=== PATIENT | female | born 1970 | race Caucasian/White ===

== ENCOUNTER 2017-04-11 08:15 | Day surgery (SDC) | payer BC ==
[2017-04-07 15:45] VITALS: BMI 33.5
[2017-04-11] MEDS ORDERED: ONDANSETRON 4 MG/2 ML VIAL IVPUSH ONE (11:52)
--- NOTE | 2017-04-11 12:28 | HP ---
Past Medical History - Primary Care Physician PCP:: Mahesh Enriquez - Admission Chief Complaint: 46yp P0020 with menometrorrhagia admitted for hysteroscopy, D& C. History of Present Illness: Bleeding every day for several months. Also was found an adnexal mass that is being evaluated. 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: Alzheimer's, CVA, Dementia, Migraine, Multiple Sclerosis, Peripheral Neuropathy, Parkinson's, Seizure, Syncope, TIA, Vertigo, Other Cardiovascular: Yes: Mitral Insufficiency, Other (Left LE venous insuficiency) Pulmonary: Yes: Asthma Gastrointestinal: No: Ascites, Cancer, Constipation, Crohn's Disease, Diverticulitis, Diverticulosis, Esophageal Varices, Gastritis, GERD, GI Bleed, Hemorrhoids, Hiatal Hernia, Inflamatory Bowel Disease, Irritable Bowel Disease, Pancreatitis, Peptic Ulcer Disease, Ulcerative Colitis, Other Hepatobiliary: No: Cirrhosis, Cholelithiasis, Cholecystitis, Choledocholithiasis , Hepatitis A, Hepatitis B, Hepatitis C, Other Renal/: No: Renal Failure, Renal Inusuff, BPH, Cancer, Hematuria, Hemodialysis , Neurogenic Bladder, Renal Calculi, UTI, Other Reproductive: Yes: Ectopic , Fibroids, PID ...: 2 ...Para: 0 Heme/Onc: No: Anemia, B12 Deficiency, Bleeding Disorder, Cancer, Current Chemotherapy, Current Radiation Therapy, Hemochromatosis, Hypercoaguable State, Myeloproliferative Synd, Sickle Cell Disease, Sickle Cell Trait, Thrombocytopenia, Other Infectious Disease: No: AIDS, C-Diff, Herpes Zoster, HIV, MRSA, STD's, Tuberculosis, VREF, Other Psych: No: Addictions, Anxiety, Bipolar, Depression, Panic, Psychosis, Schizophrenia, Other Musculoskeletal: No: Bursitis, Chronic low back pain, Hemiparesis, Hemiplegia, Osteoarthritis, Paraplegia, Other Rheumatology: No: Fibromyalgia, Gout, Lupus, Rheumatoid Arthritis, Sarcoidosis, Vasculitis, Other ENT: No: Allergic Rhinitis, Sinusitis, Other Endocrine: No: Amilcar's Disease, [place]'s Disease, Diabetes Insipidus, Diabetes Mellitus, Hyperparathyroidism, Hyperthyroidism, Hypothyroidism, Osteopenia, SIADH, Other Dermatology: No: Basal Cell, Cellulitis, Eczema, Melanoma, Psoriasis, Squamous Cell, Other - Past Surgical History Hx Myomectomy: Yes (Laparotomy) Hx Transabdominal Cerclage: No Additional Surgical History: Laparotomy for ectopic , Laparoscopy x 5, known multiple dense adhesion - Smoking History Smoking history: Current every day smoker Have you smoked in the past 12 months: Yes Aproximately how many cigarettes per day: 2 - Alcohol/Substance Use Hx Alcohol Use: No History of Substance Use: reports: None - Social History Usual Living Arrangement: Yes: With Spouse ADL: Independent History of Recent Travel: No Home Medications - Allergies Allergies/Adverse Reactions: Allergies Allergy/AdvReac Type Severity Reaction Status Date / Time prochlorperazine edisylate Allergy Intermediate "JAW KEEPS Verified 04/07/17 15: 57 [From Compazine] MOVING SIDE TO SIDE" morphine Allergy "VOMITING" Verified 04/07/17 15:57 - Home Medications Home Medications: Ambulatory Orders Triamterene/Hydrochlorothiazid [Dyazide 37.5-25 Capsule] 1 each PO DAILY Clonazepam [Klonopin] 2 mg PO BID 04/07/17 Ferrous Sulfate 325 mg PO DAILY 04/07/17 Fluoxetine HCl [Prozac] 80 mg PO DAILY 04/07/17 Family Disease History - Family Disease History Family History: Denies Review of Systems - Review of Systems Constitutional: reports: No Symptoms Eyes: reports: No Symptoms HENT: reports: No Symptoms Neck: reports: No Symptoms Cardiovascular: reports: No Symptoms Respiratory: reports: No Symptoms Gastrointestinal: reports: No Symptoms Genitourinary: reports: Vaginal Bleeding Breasts: reports: No Symptoms Reported Musculoskeletal: reports: No Symptoms Integumentary: reports: No Symptoms Neurological: reports: No Symptoms Endocrine: reports: No Symptoms Hematology/Lymphatic: reports: No Symptoms Psychiatric: reports: No Symptoms Pain Intensity: 0 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: Vital Signs Temperature 98.5 F 04/11/17 08:39 Pulse Rate 63 04/11/17 08:39 Respiratory Rate 18 04/11/17 08:39 Blood Pressure 100/65 04/11/17 08:39 O2 Sat by Pulse Oximetry (%) 98 04/11/17 08:39 Constitutional: Yes: No Distress, Anxious, Obese Eyes: Yes: WNL, Conjunctiva Clear, EOM Intact HENT: Yes: WNL Neck: Yes: WNL, Supple, Trachea Midline Cardiovascular: Yes: WNL, Regular Rate and Rhythm Respiratory: Yes: WNL, Regular, CTA Bilaterally Gastrointestinal: Yes: WNL, Normal Bowel Sounds, Soft, Abdomen, Obese Renal/: Yes: WNL Pelvis: Yes: WNL External Genitalia: Yes: Normal Internal Exam Deferred: No Vaginal Exam: Yes: Normal Cervix: Yes: Normal Uterus: Yes: Enlarged Adnexa: Normal: Left, Right (known adnexal mass not felt) Musculoskeletal: Yes: WNL Extremities: Yes: WNL Edema: No Integumentary: Yes: WNL Neurological: Yes: Alert, Oriented ...Motor Strength: WNL Psychiatric: Yes: WNL, Alert, Oriented Imaging - Results Ultrasound: Report Reviewed Assessment/Plan 46 yo P0020 with menometrorrhagia admitted for hysteroscopy, D&C. 1. We had discussed the risks, benefits, alternatives of surgery at length including but not limited to infection, bleeding, scarring, perforation, amenorrhea, infertility, hysterectomy, etc. The pt verbalized understanding and requested to proceed with surgery. I emphasized that all surgeries have risks and no guarantees can be provided 2. We had discussed the management of the adnexal mass. The pt understands that a close f/u is required and the findings are cancer until proven otherwise. We discussed that another surgery may be needed later and the increased risks due to obesity, asthma, adhesions, etc. explained.
[2017-04-11] MEDS ORDERED: LIDOCAINE HCL/PF 2% SDV 5ML VIAL ONE (12:45)
[2017-04-11] MEDS ORDERED: MIDAZOLAM HCL 2 MG/2 ML SINGLE DOSE VIAL ONE ×2 (12:45)
[2017-04-11] MEDS ORDERED: PROPOFOL 20 ML ONE (12:45)
[2017-04-11] MEDS ORDERED: ceFAZolin SODIUM 1 GM VIAL IVPB ONE (13:07)
[2017-04-11] MEDS ORDERED: ONDANSETRON 4 MG/2 ML VIAL IVPUSH PRN (13:22)
[2017-04-11] MEDS ORDERED: PROMETHAZINE HCL 25 MG/1 ML VIAL IVPUSH PRN (13:22)
[2017-04-11] MEDS ORDERED: oxyCODONE HCL 5 MG TABLET PO PRN (13:22)
[2017-04-11 13:42] VITALS: TEMP 97.8
[2017-04-11 14:13] VITALS: PULSE 64
[2017-04-11 15:45] VITALS: BP 100/60
--- NOTE | 2017-04-11 20:32 | OP ---
Operative Note - Note: Operative Date: 04/11/17 Pre-Operative Diagnosis: Menometrorrhagia, fibroid uterus Operation: Hysteroscopy, D&C Findings: Normal appearing endometrial cavity with an area of polypoid endometrial lining Post-Operative Diagnosis: Same as Pre-op Surgeon: Mahesh Enriquez Anesthesiologist/INPATIENT AUDITOR: Erasmo Howe Anesthesia: General Specimens Removed: Endometrial curettings, endometrial polyp Estimated Blood Loss (mls): 5 Blood Volume Replaced (mls): 0 Fluid Volume Replaced (mls): 1,000 Operative Report Dictated: Yes
--- NOTE | 2017-04-12 08:49 | OP ---
DATE OF OPERATION: 04/11/2017 PREOPERATIVE DIAGNOSES: Menometrorrhagia, fibroid uterus. POSTOPERATIVE DIAGNOSES: Menometrorrhagia, fibroid uterus, endometrial polyp. SURGEON: Lincoln Dorsey MD ANESTHESIOLOGIST: Erasmo Howe MD ANESTHESIA: General. COMPLICATIONS: None. ESTIMATED BLOOD LOSS: 5 mL. IV FLUIDS: Crystalloid, 1000 mL. PATHOLOGY: Endometrial curettings, endometrial polyp. PROCEDURE: Hysteroscopy, dilatation and curettage, polypectomy. FINDINGS: Examination under anesthesia was somewhat limited due to patient's obesity and multiple previous abdominal surgeries. The uterus appeared to be slightly enlarged. No pelvic or adnexal masses were palpable. Hysteroscopy was technically difficult due to patient's obesity as well as position of the cervix and uterus that made angling of the camera and visualization difficult. However, during the hysteroscopy a normal-appearing uterine cavity was noted. A small uterine polyp and polypoid endometrial lining were noted. PROCEDURE: The patient was met preoperatively. Risks, benefits, and alternatives of surgery were discussed in details. All questions were answered. The patient was then brought to the OR with IV running. She was placed on the surgical table in the supine position. General anesthesia was achieved without difficulty. The patient was then placed in a dorsal lithotomy position using adjustable Erich stirrups. She was prepped and draped in the usual sterile fashion. A pelvic examination under anesthesia was performed. It was very difficult to palpate the uterus and adnexa due to patient's obesity and multiple prior surgeries. The vaginal length was making it difficult to reach the cervix. A sterile speculum was introduced inside the vagina with good visualization of the cervix. The anterior cervical lip was grasped with a single-tooth tenaculum. The endocervical canal was gently dilated to accommodate size 17 Bobby dilator. A diagnostic hysteroscope was introduced through the cervix into the endometrial cavity. The hysteroscopy was complicated by patient's obesity and distal position of the cervix making angling and adequate visualization very difficult. However, a normal-appearing uterine cavity was noted with a small uterine polyp and slightly polypoid endometrial lining. The hysteroscope was then removed. The cervical os was dilated to accommodate a size 27 Bobby dilator. A polyp forceps was used to remove the endometrial polyp. A sharp curettage was then performed and the tissue was submitted to Pathology for evaluation. A hysteroscope was once again introduced into the uterine cavity. No further polyps were noted. Good hemostasis was noted. All of the instruments were then removed from the patient. Sponge, lap, and instrument counts were correct. The patient was transferred to the recovery room in stable condition and awake. LINCOLN DORSEY M.D. [id number]
--- NOTE | 2017-04-12 12:47 | PATH ---
Surgical Pathology Report Patient Name: [facility]. Rec. #: [id number] /Age/Gender: 1970 (Age: 46) / F Account: [id number] Location: [facility] Taken: 04/11/2017 Received: 04/11/2017 Reported: 04/12/2017 Physicians: Mahesh Enriquez M.D. 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 NO ENDOMETRIAL HYPERPLASIA OR CARCINOMA IDENTIFIED. Comment: Recommend correlation with clinical findings and follow up as clinically indicated. Electronically Signed Brennan Mendez M.D. Gross Description Received in formalin labeled "endometrial curettings," is a 2.5 x 2.3 x 0.3 cm aggregate of salas-red soft tissue fragments admixed with blood clot. The formalin is filtered and the specimen is entirely submitted in one cassette. 04/11/201704/11/2017
== END 2017-04-11 15:55 | disposition home or self-care (01) ==
LOC: JASU-SURG 08:15
PROVIDERS: ATTEND Obstetrics & Gynecology
PROC: 0UB98ZX Excision of Uterus, Via Natural or Artificial Opening Endoscopic, Diagnostic (ICD-10-PCS; principal; 2017-04-11 10:30)
PROC: 0UDB8ZX Extraction of Endometrium, Via Natural or Artificial Opening Endoscopic, Diagnostic (ICD-10-PCS; 2017-04-11 10:30)
DX: N92.0 Excessive and frequent menstruation with regular cycle (principal); D25.9 Leiomyoma of uterus, unspecified; N84.0 Polyp of corpus uteri
CPT/HCPCS: 84703; 88305-TC; 94760

== ENCOUNTER 2017-05-15 22:48 | Emergency (ER) | payer BC ==
[2017-05-15 23:00] VITALS: BMI 35.2
--- NOTE | 2017-05-15 23:34 | PDOC ---
History of Present Illness - General History Source: Patient Exam Limitations: No Limitations - History of Present Illness Initial Comments: 05/16/17 00:08 The patient is a 46 year old female presenting with her , with a significant past medical history of MVP, PID, fibroids, anemia, asthma and diverticulosis, who presents to the emergency department with abdominal distention, pelvic pain for numerous months and vaginal bleeding. She describes her abdominal pain as a pressure, localized in the lower abdominal quadrants, ranging from mild to moderate, without radiation or modifying factors. She describes he vaginal bleeding as light spotting. The patient had a hysteroscopy on 04/15/[address] Enriquez for menorrhagia. Pathology was negative for any displacia. The patient is scheduled for a total hysterectomy due to increased bleeding and concern for adnexal mass. The patient denies chest pain, shortness of breath, headache and dizziness. Denies fever, chills, nausea, vomit, diarrhea and constipation. Denies dysuria, frequency, urgency and hematuria. Allergies: prochlorperazine edisylate, morphine Past surgical history: None reported Social history: No alcohol, tobacco or drug use reported <Jasper Snell - Last Filed: 05/16/17 00:07> <Halie Moy - Last Filed: 05/16/17 02:28> <Noy Smith - Last Filed: 05/16/17 05:06> - General Chief Complaint: Vaginal Bleeding Stated Complaint: STOMACH PAIN Time Seen by Provider: 05/15/17 23:30 Past History <Jasper Snell - Last Filed: 05/16/17 00:07> - Past Medical History Anemia: Yes Asthma: Yes Cancer: No Cardiac Disorders: Yes (MVP) CVA: No COPD: No CHF: No Dementia: No Diabetes: No (PRE DIABETIC) GI Disorders: Yes (DIVERTICULOSIS) Disorders: No HTN: No Hypercholesterolemia: No Liver Disease: No Seizures: No Thyroid Disease: No - Surgical History Abdominal Surgery: No Appendectomy: No Cardiac Surgery: No Cholecystectomy: No Lung Surgery: No Neurologic Surgery: No Orthopedic Surgery: No - Psycho/Social/Smoking Cessation Hx Suicidal Ideation: No Smoking History: Never smoked Have you smoked in the past 12 months: No Number of Cigarettes Smoked Daily: 2 Information on smoking cessation initiated: No 'Breaking Loose' booklet given: 04/11/17 Hx Alcohol Use: No Drug/Substance Use Hx: No Hx Substance Use Treatment: No <Halie Moy - Last Filed: 05/16/17 02:28> <Noy Smith - Last Filed: 05/16/17 05:06> - Past Medical History Allergies/Adverse Reactions: Allergies Allergy/AdvReac Type Severity Reaction Status Date / Time prochlorperazine edisylate Allergy Intermediate "JAW KEEPS Verified 05/15/17 22: 56 [From Compazine] MOVING SIDE TO SIDE" morphine Allergy "VOMITING" Verified 05/15/17 22:56 Home Medications: Ambulatory Orders Triamterene/Hydrochlorothiazid [Dyazide 37.5-25 Capsule] 1 each PO DAILY Clonazepam [Klonopin] 2 mg PO BID 04/07/17 Ferrous Sulfate 325 mg PO DAILY 04/07/17 Fluoxetine HCl [Prozac] 80 mg PO DAILY 04/07/17 Review of Systems - Review of Systems Able to Perform ROS?: Yes Comments:: 05/16/17 00:08 GENERAL/CONSTITUTIONAL: No fever or chills. No weakness. HEAD, EYES, EARS, NOSE AND THROAT: No change in vision. No ear pain or discharge. No sore throat.- CARDIOVASCULAR: No chest pain or shortness of breath RESPIRATORY: No cough, wheezing, or hemoptysis. GASTROINTESTINAL: (+) Abdominal pain. No nausea, vomiting, diarrhea or constipation. GENITOURINARY: (+) Vaginal bleeding. No dysuria, frequency, or change in urination. MUSCULOSKELETAL: No joint or muscle swelling or pain. No neck or back pain. SKIN: No rash NEUROLOGIC: No headache, vertigo, loss of consciousness, or change in strength/ sensation. ENDOCRINE: No increased thirst. No abnormal weight change HEMATOLOGIC/LYMPHATIC: No anemia, easy bleeding, or history of blood clots. ALLERGIC/IMMUNOLOGIC: No hives or skin allergy. <Jasper Snell - Last Filed: 05/16/17 00:07> *Physical Exam - Vital Signs Last Vital Signs Temp Pulse Resp BP Pulse Ox 98.0 F 71 16 143/83 100 05/15/17 22:58 05/15/17 22:58 05/15/17 22:58 05/15/17 22:58 05/15/17 22:58 - Physical Exam Comments: 05/16/17 00:08 GENERAL: Awake, alert, and fully oriented, in no acute distress HEAD: No signs of trauma, normocephalic, atraumatic EYES: PERRLA, EOMI, sclera anicteric, conjunctiva clear ENT: Auricles normal inspection, hearing grossly normal, nares patent, oropharynx clear without exudates. Moist mucosa NECK: Normal ROM, supple, no lymphadenopathy, JVD, or masses LUNGS: No distress, speaks full sentences, clear to auscultation bilaterally HEART: Regular rate and rhythm, normal S1 and S2, no murmurs, rubs or gallops, peripheral pulses normal and equal bilaterally. ABDOMEN: Soft, nontender, normoactive bowel sounds. No guarding, no rebound. No masses EXTREMITIES : Normal inspection, Normal range of motion, no edema. No clubbing or cyanosis. NEUROLOGICAL: Cranial nerves II through XII grossly intact. Normal speech, normal gait, no focal sensorimotor deficits SKIN: Warm, Dry, normal turgor, no rashes or lesions noted. <Jasper Snell - Last Filed: 05/16/17 00:07> - Vital Signs Last Vital Signs Temp Pulse Resp BP Pulse Ox 98.0 F 71 16 143/83 100 05/15/17 22:58 05/15/17 22:58 05/15/17 22:58 05/15/17 22:58 05/15/17 22:58 <Halie Moy - Last Filed: 05/16/17 02:28> - Vital Signs Last Vital Signs Temp Pulse Resp BP Pulse Ox 98.0 F 71 16 143/83 100 05/15/17 22:58 05/15/17 22:58 05/15/17 22:58 05/15/17 22:58 05/15/17 22:58 <Noy Smith - Last Filed: 05/16/17 05:06> ED Treatment Course - ADDITIONAL ORDERS Additional order review: Laboratory Results 05/15/17 23:33 Urine Color Yellow Urine Appearance Cloudy Urine pH 5.0 Urine Protein Negative Urine Glucose (UA) Negative Urine Ketones Negative Urine Blood 2+ H Urine Nitrite Negative Urine Bilirubin Negative Urine Urobilinogen Negative Ur Leukocyte Esterase Negative Urine HCG, Qual Negative <Jennifer Snellmarlen Reynosoe - Last Filed: 05/16/17 00:07> - LABORATORY CBC & Chemistry Diagram: 05/16/17 00:20 05/16/17 00:20 - ADDITIONAL ORDERS Additional order review: Laboratory Results 05/16/17 05/15/17 00:20 23:33 Sodium 138 Potassium 3.8 Chloride 100 Carbon Dioxide 28 Anion Gap 10 BUN 16 Creatinine 0.7 Creat Clearance w eGFR > 60 Random Glucose 98 Calcium 9.6 Total Bilirubin 0.5 D AST 16 ALT 34 D Alkaline Phosphatase 78 D Total Protein 6.9 Albumin 3.6 Lipase 257 Urine Color Yellow Urine Appearance Cloudy Urine pH 5.0 Urine Protein Negative Urine Glucose (UA) Negative Urine Ketones Negative Urine Blood 2+ H Urine Nitrite Negative Urine Bilirubin Negative Urine Urobilinogen Negative Ur Leukocyte Esterase Negative Urine RBC <1 Urine WBC 6 Ur Epithelial Cells Moderate Hyaline Casts 1 Urine Mucus Rare Urine HCG, Qual Negative 05/16/17 00:20 RBC 4.99 D MCV 76.5 L MCHC 32.7 RDW 16.2 H MPV 9.2 Neutrophils % 63.3 Lymphocytes % 24.2 D Monocytes % 7.8 Eosinophils % 3.4 D Basophils % 1.3 D - Medications Given in the ED: ED Medications Discontinued Medications Generic Name Dose Route Start Last Admin Trade Name Bobby PRN Reason Stop Dose Admin Clonazepam 2 mg 05/16/17 00:47 05/16/17 00:57 Klonopin - PO 05/16/17 00:48 2 mg ONCE ONE Administration Sodium Chloride 1,000 mls @ 1,000 mls/hr 05/16/17 00:09 05/16/17 00:27 Normal Saline - IV 05/16/17 01:08 1,000 mls/hr ASDIR STA Administration Sodium Chloride 1,000 mls @ 1,000 mls/hr 05/16/17 00:55 05/16/17 00:59 Normal Saline - IV 05/16/17 01:54 Not Given ASDIR STA <Noy Smith - Last Filed: 05/16/17 05:06> Progress Note - Progress Note Progress Note: Patient Name: BHUPINDER CHILDRESS THIS IS A PRELIMINARY REPORT FROM [facility] EXAM: CT abdomen with contrast and CT pelvis with contrast IMAGES: 1095 EXAM DATE AND TIME: 2017-05-16 02:24:37 REASON FOR EXAM: 46-year-old female abdominal distention, and pelvic pain. COMPARISON: None. FINDINGS: Lung bases are clear. Liver gallbladder pancreas spleen adrenal glands and left kidney appear unremarkable. Subcentimeter hypodense right kidney cortical cystic process is too small to characterize and most likely benign. No nephrolithiasis or hydronephrosis. Small hiatal hernia. Stomach small bowel and appendix appear unremarkable. No appendicitis. Diverticulosis without diverticulitis. Nonspecific heterogeneous masses in the uterus most likely due to uterine fibroids and other uterine masses cannot be excluded. Bilateral nonspecific complex ovarian cystic processes. No free air free fluid or abscess. Mild degenerative joint disease of the lower thoracic facets with mild dorsal spinal canal narrowing. Mild degenerative disc disease. Mild lower lumbar neural foraminal narrowing. IMPRESSION: Bilateral nonspecific complex ovarian cystic processes. If clinically indicated recommend correlation with transabdominal pelvic ultrasound and transvaginal pelvic ultrasound. Nonspecific heterogeneous masses in the uterus most likely due to uterine fibroids and other uterine masses cannot be excluded. If clinically indicated followup outpatient evaluation may be needed. Small hiatal hernia. Diverticulosis without diverticulitis. THIS DOCUMENT HAS BEEN ELECTRONICALLY SIGNED <Noy Smith - Last Filed: 05/16/17 05:06> Medical Decision Making - Medical Decision Making 05/15/17 23:53 46-year-old female who had a hysteroscopy for Augmentin menorrhagia in April by Dr. Enriquez presents for vaginal bleeding. Past medical history 2, para 0. She neck, ectopic , fibroids and pelvic inflammatory disease. Past surgical history also includes asthma and mitral insufficiency <Halie Moy - Last Filed: 05/16/17 02:28> - Medical Decision Making 05/16/17 04:56 I spoke to PMCristian Enriquez, who states that pt's findings are consistent with what was known from before. Pt has no fever, no sign of intraabdominal or ovarian abscess (from procedure done past week or two ago). Pt is afebrile and has no elevated WBC count. However we will get a sonogram to r/o torsion andto measure the size of the ovaries bilaterally Pt may be sent home with pain management as she is scheduled to see the [facility] oncologist on the of this month and she is scheduled for surgery on the of this month. Pt is stable at this time. She is ambulating about the ER and she appears well , though she states that she still has pain in her abdomen. I will sign patient out to the day ER team, they can get the ovarian sonogram, when the ultrasound dept opens and then disposition the patient. <Noy Smith - Last Filed: 05/16/17 05:06> *DC/Admit/Observation/Transfer - Attestations Scribe Attestion: 05/16/17 00:08 Documentation prepared by Jasper Snell, acting as medical assistant float for Halie Moy MD <Jasper Snell - Last Filed: 05/16/17 00:07> <Halie Moy - Last Filed: 05/16/17 02:28> <Nyo Smith - Last Filed: 05/16/17 05:06> Diagnosis at time of Disposition: Uterine mass, Ovarian cyst, complex, Abdominal pain
[2017-05-15 23:47] LABS: URINE APPEARANCE CLOUDY; URINE BILIRUBIN NEGATIVE (NEGATIVE); URINE BLOOD 2+ (NEGATIVE); URINE COLOR YELLOW; URINE GLUCOSE (UA) NEGATIVE (NEGATIVE); URINE KETONE NEGATIVE (NEGATIVE); URINE LEUK ESTERASE NEGATIVE (NEGATIVE); URINE NITRITE NEGATIVE (NEGATIVE); URINE PROTEIN NEGATIVE (NEGATIVE); URINE UROBILINOGEN NEGATIVE mg/dL (0.2-1.0)
[2017-05-16] MEDS ORDERED: SODIUM CHLORIDE 1,000 ML IV STA ×2 (00:09→00:55)
[2017-05-16 00:11] LABS: URINE HYALINE CAST 1 /lpf; URINE MUCUS RARE; URINE RBC <1 /hpf (0-3); URINE WBC 6 /hpf (3-5)
[2017-05-16 00:38] LABS: BASOPHIL 1.3 % (0-2.0); EOSINOPHIL 3.4 % (0-4.5); MCHC 32.7 g/dl (32.0-36.0); MEAN CELL VOLUME 76.5 fl (80-96); MEAN PLT VOLUME 9.2 fl (7.5-11.1); NEUTROPHILS 63.3 % (42.8-82.8); PLATELET COUNT 272 K/MM3 (134-434); RDW 16.2 % (11.6-15.6); WHITE BLOOD COUNT 10.4 K/mm3 (4.0-10.0)
[2017-05-16] MEDS ORDERED: clonazePAM 2 MG TABLET PO ONE (00:47)
[2017-05-16] MEDS ORDERED: clonazePAM 0.5 MG TABLET ONE (00:52)
[2017-05-16 01:08] LABS: ALBUMIN 3.6 g/dl (3.4-5.0); ANION GAP 10 (8-16); BILIRUBIN,TOTAL 0.5 mg/dL (0.2-1.0); CALCIUM 9.6 mg/dL (8.5-10.1); CO2 28 mmol/L (21-32); CREATININE 0.7 mg/dL (0.55-1.02); GLUCOSE,RANDOM 98 mg/dL (74-106); SGOT/AST 16 U/L (15-37); SGPT/ALT 34 U/L (12-78)
[2017-05-16 01:09] LABS: ALK PHOS 78 U/L (45-117); TOT PROT 6.9 g/dl (6.4-8.2)
[2017-05-16] MEDS ORDERED: ACETAMINOPHEN 1000 MG/100 ML VIAL (NON FORMULARY) IVPB ONE (04:33)
[2017-05-16] MEDS ORDERED: ACETAMINOPHEN INJECTION 100 ML IVPB ONE (04:34)
[2017-05-16] MEDS ORDERED: KETOROLAC TROMETHAMINE 30 MG/1 ML VIAL IVPUSH ONE (05:58)
[2017-05-16] MEDS ORDERED: KETOROLAC TROMETHAMINE 30 MG/1 ML VIAL ONE (06:01)
[2017-05-16 06:42] VITALS: TEMP 98.1
--- NOTE | 2017-05-16 10:06 | PDOC ---
*Physical Exam - Vital Signs Last Vital Signs Temp Pulse Resp BP Pulse Ox 98.1 F 62 16 108/50 98 05/16/17 06:39 05/16/17 06:39 05/16/17 06:39 05/16/17 06:39 05/16/17 06:47 - Physical Exam General Appearance: Yes: Nourished Respiratory/Chest: positive: Lungs Clear, Normal Breath Sounds Cardiovascular: positive: Regular Rhythm, Regular Rate, S1, S2 Gastrointestinal/Abdominal: positive: Flat Extremity: positive: Normal Capillary Refill, Normal Inspection Integumentary: positive: Normal Color, Dry, Warm Neurologic: positive: Fully Oriented, Alert, Normal Mood/Affect ED Treatment Course - LABORATORY CBC & Chemistry Diagram: 05/16/17 00:20 05/16/17 00:20 - ADDITIONAL ORDERS Additional order review: Laboratory Results 05/16/17 05/15/17 00:20 23:33 Sodium 138 Potassium 3.8 Chloride 100 Carbon Dioxide 28 Anion Gap 10 BUN 16 Creatinine 0.7 Creat Clearance w eGFR > 60 Random Glucose 98 Calcium 9.6 Total Bilirubin 0.5 D AST 16 ALT 34 D Alkaline Phosphatase 78 D Total Protein 6.9 Albumin 3.6 Lipase 257 Urine Color Yellow Urine Appearance Cloudy Urine pH 5.0 Urine Protein Negative Urine Glucose (UA) Negative Urine Ketones Negative Urine Blood 2+ H Urine Nitrite Negative Urine Bilirubin Negative Urine Urobilinogen Negative Ur Leukocyte Esterase Negative Urine RBC <1 Urine WBC 6 Ur Epithelial Cells Moderate Hyaline Casts 1 Urine Mucus Rare Urine HCG, Qual Negative 05/16/17 00:20 RBC 4.99 D MCV 76.5 L MCHC 32.7 RDW 16.2 H MPV 9.2 Neutrophils % 63.3 Lymphocytes % 24.2 D Monocytes % 7.8 Eosinophils % 3.4 D Basophils % 1.3 D - RADIOLOGY Radiology Studies Ordered: Category Date Time Status TRANSVAGINAL ULTRASOUND US [US] Routine Ultrasound 05/16/17 Completed - Medications Given in the ED: ED Medications Discontinued Medications Generic Name Dose Route Start Last Admin Trade Name Freq PRN Reason Stop Dose Admin Acetaminophen 1,000 mg 05/16/17 04:33 05/16/17 04:35 Ofirmev Injection - IVPB 05/16/17 04:34 1,000 mg ONCE ONE Administration Clonazepam 2 mg 05/16/17 00:47 05/16/17 00:57 Klonopin - PO 05/16/17 00:48 2 mg ONCE ONE Administration Sodium Chloride 1,000 mls @ 1,000 mls/hr 05/16/17 00:09 05/16/17 00:27 Normal Saline - IV 05/16/17 01:08 1,000 mls/hr ASDIR STA Administration Sodium Chloride 1,000 mls @ 1,000 mls/hr 05/16/17 00:55 05/16/17 00:59 Normal Saline - IV 05/16/17 01:54 Not Given ASDIR STA Ketorolac Tromethamine 30 mg 05/16/17 05:58 05/16/17 06:05 Toradol Injection - IVPUSH 05/16/17 05:59 30 mg ONCE ONE Administration Medical Decision Making - Medical Decision Making 05/16/17 10:01 46 yo F with /o severe fibroids, chronic pelvic pain. scheduled to have hysterectomy 05/23/17 . pt was awaiting to have pelvic ultrasound to evaluate ovarian size, bilateral ovaries enlarged. d/w dr enriquez, who is aware of ovarian enlargement. states pt surgery expected to be very complicated due to ho several pelvic surgeries in the past and known adhesions. requiring assistance from turf manager/ oncology. pt is scheduled to see dr. Johnson on 05/18 ( 3 days from today) . also has evaluation scheduled with second turf manager/ifeanyi dr. mora. will d/w pt . offered percocet for pain control in mean time. pt declined. wilil continue taking motrin. *DC/Admit/Observation/Transfer Diagnosis at time of Disposition: Uterine mass, Ovarian cyst, complex, Abdominal pain - Discharge Dispostion Disposition: HOME Admit: No - Referrals Referrals: Kavon Marsh MD [Staff Physician] - - Patient Instructions Printed Discharge Instructions: Uterine Fibroids, DI for Abdominal Pain-Adult Additional Instructions: you are to follow up with Dr Marsh as scheduled for 05/18/17. you can continue taking motrin 600 mg every 8 hours as needed for pain. return for any problems or concenrs. follow up wtih Dr. Enriquez as scheduled. you can also follow up with dr. mora as scheduled.
[2017-05-16 10:31] VITALS: BP 129/76; PULSE 50
== END 2017-05-16 10:31 | disposition home or self-care (01) ==
LOC: JER 22:48
PROC: 3E0337Z Introduction of Electrolytic and Water Balance Substance into Peripheral Vein, Percutaneous Approach (ICD-10-PCS; principal; 2017-05-15)
PROC: 3E033NZ Introduction of Analgesics, Hypnotics, Sedatives into Peripheral Vein, Percutaneous Approach (ICD-10-PCS; 2017-05-15)
PROC: 3E0333Z Introduction of Anti-inflammatory into Peripheral Vein, Percutaneous Approach (ICD-10-PCS; 2017-05-15)
DX: D25.9 Leiomyoma of uterus, unspecified (principal); N83.292 Other ovarian cyst, left side; N83.291 Other ovarian cyst, right side; J45.909 Unspecified asthma, uncomplicated; D64.9 Anemia, unspecified; R73.03 Prediabetes
CPT/HCPCS: 36415; 74177-TC; 76830-TC; 76856-TC; 80053; 81003; 81015; 83690; 84703; 85025; 87086; 99285-25

== ENCOUNTER 2017-05-23 06:09 | Inpatient (IN) | payer BC ==
[2017-05-19 11:32] VITALS: BMI 35.2
[2017-05-23] MEDS ORDERED: MIDAZOLAM HCL 2 MG/2 ML SINGLE DOSE VIAL ONE (07:34)
[2017-05-23] MEDS ORDERED: BUPIVACAINE HCL/PF 0.5% (5MG/ML) 10 ML VIAL ONE (07:51)
[2017-05-23] MEDS ORDERED: METHYLENE BLUE 1% 10 MG/1 ML VIAL NR ONE (08:00)
--- NOTE | 2017-05-23 08:26 | HP ---
Past Medical History - Primary Care Physician PCP:: Mahesh Enriquez - Admission Chief Complaint: 46yo P0 with fibroid uterus, pelvic pain, right adnexal mass, pelvic adhesions, menometrorrhagia, multiple prior surgeries, admitted for hysterectomy and right salpingoophorectomy. History of Present Illness: Pelvic pain with multiple prior office and ER visits, multiple surgeries. Persistent right adnexal mass 5-6cm with normal TAMARA Menometrorrhagia Fibroid uterus. History Source: Patient, Medical Record Limitations to Obtaining History: No Limitations - Past Medical History SERVICE AGENT: No: Alzheimer's, CVA, Dementia, Migraine, Multiple Sclerosis, Peripheral Neuropathy, Parkinson's, Seizure, Syncope, TIA, Vertigo, Other Cardiovascular: Yes: Mitral Insufficiency, Other (Left LE venous insuficiency) Pulmonary: Yes: Asthma Gastrointestinal: Yes: Diverticulosis Hepatobiliary: No: Cirrhosis, Cholelithiasis, Cholecystitis, Choledocholithiasis , Hepatitis A, Hepatitis B, Hepatitis C, Other Renal/: Yes: Renal Calculi Reproductive: Yes: Ectopic , Endometriosis, Fibroids, PID ...: 2 ...Para: 0 Heme/Onc: No: Anemia, B12 Deficiency, Bleeding Disorder, Cancer, Current Chemotherapy, Current Radiation Therapy, Hemochromatosis, Hypercoaguable State, Myeloproliferative Synd, Sickle Cell Disease, Sickle Cell Trait, Thrombocytopenia, Other Infectious Disease: No: AIDS, C-Diff, Herpes Zoster, HIV, MRSA, STD's, Tuberculosis, VREF, Other Psych: No: Addictions, Anxiety, Bipolar, Depression, Panic, Psychosis, Schizophrenia, Other Musculoskeletal: No: Bursitis, Chronic low back pain, Hemiparesis, Hemiplegia, Osteoarthritis, Paraplegia, Other Rheumatology: No: Fibromyalgia, Gout, Lupus, Rheumatoid Arthritis, Sarcoidosis, Vasculitis, Other ENT: No: Allergic Rhinitis, Sinusitis, Other Endocrine: No: Amilcar's Disease, Cochrane's Disease, Diabetes Insipidus, Diabetes Mellitus, Hyperparathyroidism, Hyperthyroidism, Hypothyroidism, Osteopenia, SIADH, Other Dermatology: No: Basal Cell, Cellulitis, Eczema, Melanoma, Psoriasis, Squamous Cell, Other - Past Surgical History Hx Myomectomy: No Hx Transabdominal Cerclage: No Additional Surgical History: Laparoscopy (many), cystectomy. Laparotomy (many) . D&C - Smoking History Smoking history: Current every day smoker Have you smoked in the past 12 months: Yes Aproximately how many cigarettes per day: 10 - Alcohol/Substance Use Hx Alcohol Use: No History of Substance Use: reports: None - Social History ADL: Independent History of Recent Travel: No Home Medications - Allergies Allergies/Adverse Reactions: Allergies Allergy/AdvReac Type Severity Reaction Status Date / Time prochlorperazine edisylate Allergy Intermediate "JAW KEEPS Verified 05/19/17 11: 18 [From Compazine] MOVING SIDE TO SIDE" morphine AdvReac "VOMITING" Verified 05/23/17 07:03 - Home Medications Home Medications: Ambulatory Orders Triamterene/Hydrochlorothiazid [Dyazide 37.5-25 Capsule] 1 each PO DAILY Clonazepam [Klonopin] 2 mg PO BID 04/07/17 Ferrous Sulfate 325 mg PO DAILY 04/07/17 Fluoxetine HCl [Prozac] 80 mg PO DAILY 04/07/17 Oxycodone HCl/Acetaminophen [Percocet 5-325 mg Tablet] 1 tab PO Q4H PRN #15 tablet MDD 6 05/16/17 Pantoprazole Sodium [Protonix] 40 mg PO DAILY #30 tablet. 05/16/17 Benztropine Mesylate 0.5 mg PO DAILY PRN 05/19/17 Family Disease History - Family Disease History Family History: Unremarkable (Great Aunt with h/o brest ca. Great GM had stomach cancer. 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 malignancy) Family Disease History: Other: Grandparent (Melanoma) Review of Systems - Review of Systems Constitutional: reports: No Symptoms Eyes: reports: No Symptoms HENT: reports: No Symptoms Neck: reports: No Symptoms Cardiovascular: reports: No Symptoms Respiratory: reports: No Symptoms Gastrointestinal: reports: No Symptoms Genitourinary: reports: No Symptoms Breasts: reports: No Symptoms Reported Musculoskeletal: reports: No Symptoms Integumentary: reports: No Symptoms Neurological: reports: No Symptoms Endocrine: reports: No Symptoms Hematology/Lymphatic: reports: No Symptoms Psychiatric: reports: No Symptoms Pain Intensity: 2 Physical Exam-CLAY TRANSPORTER Vital Signs: Vital Signs Temperature 98.4 F 05/23/17 06:55 Pulse Rate 61 05/23/17 06:55 Respiratory Rate 18 05/23/17 06:55 Blood Pressure 111/57 05/23/17 06:55 O2 Sat by Pulse Oximetry (%) 97 05/23/17 06:57 Constitutional: Yes: No Distress, Calm, Obese Eyes: Yes: WNL, Conjunctiva Clear, EOM Intact HENT: Yes: WNL, Atraumatic, Normocephalic Neck: Yes: WNL, Supple, Trachea Midline Cardiovascular: Yes: WNL, Regular Rate and Rhythm Respiratory: Yes: WNL, Regular, CTA Bilaterally Gastrointestinal: Yes: WNL, Normal Bowel Sounds, Soft, Abdomen, Obese Renal/: Yes: WNL Pelvis: Yes: WNL External Genitalia: Yes: Normal Internal Exam Deferred: No Vaginal Exam: Yes: Normal Cervix: Yes: Normal Uterus: Yes: Enlarged, Tender, Other (fixed in place) Adnexa: Normal: Left, Right (difficult to palpate) Musculoskeletal: Yes: WNL Extremities: Yes: WNL Edema: No Integumentary: Yes: WNL Neurological: Yes: WNL, Alert, Oriented ...Motor Strength: WNL Psychiatric: Yes: WNL, Alert, Oriented Imaging - Results Cat Scan: Report Reviewed Ultrasound: Report Reviewed Assessment/Plan 46yo P0 with fibroid uterus, pelvic pain, right adnexal mass, pelvic adhesions, menometrorrhagia, multiple prior surgeries, admitted for hysterectomy and right salpingoophorectomy. We discussed the attempt at laparoscopic TLH, RSO and the high chance of laparotomy with PERLA, RSO, possible BSO. The pt prefers laparoscopic TLH, RSO. We had discussed the risks, benefits, alternatives of surgery at length including but not limited to infection, bleeding, scarring, perforation, amenorrhea, infertility, injury to surrounding/underlying organs or structure, need for additional surgery to repair/treat any complications, etc. The patient verbalized understanding and requested to proceed with surgery. I emphasized that all surgeries have risks and no guarantees can be provided.
[2017-05-23] MEDS ORDERED: CEFAZOLIN 2 GM in DEXTROSE 5%-WATER - 100 ML IVPB ONE (08:39)
[2017-05-23] MEDS ORDERED: PROPOFOL 20 ML ONE (08:45)
[2017-05-23] MEDS ORDERED: ROCURONIUM BROMIDE 50 MG/5 ML VIAL ONE ×2 (08:45→10:14)
[2017-05-23] MEDS ORDERED: ceFAZolin SODIUM 1 GM VIAL IVPB ONE (08:59)
[2017-05-23] MEDS ORDERED: KETOROLAC TROMETHAMINE 30 MG/1 ML VIAL ONE (10:09)
[2017-05-23] MEDS ORDERED: DEXAMETHASONE SOD PHOSPHATE 4 MG/1 ML VIAL ONE (10:09)
[2017-05-23] MEDS ORDERED: BUPIVACAINE HCL/PF 0.5% (5MG/ML) 10 ML VIAL IJ ONE ×2 (11:15)
[2017-05-23] MEDS ORDERED: NEOSTIGMINE METHYLSULFATE 0.5 MG/ML - 10 ML MDV ONE (11:32)
[2017-05-23] MEDS ORDERED: oxyCODONE HCL 5 MG TABLET PO PRN (12:02)
[2017-05-23] MEDS ORDERED: ONDANSETRON 4 MG/2 ML VIAL IVPUSH PRN (12:02)
--- NOTE | 2017-05-23 12:11 | OP ---
Operative Note - Note: Operative Date: 05/23/17 Pre-Operative Diagnosis: Pelvic pain, right pelvic mass, menometrorrhagia, fibroid uterus, adhesions Operation: exp. Laparotomy. Supracervical hysterectomy. BSO. Lysis of adhesions Findings: 1. Large fibroid uterus 2. bilateral ovarian cystic masses 3. massive pelvic and abdominal adhesions b/w uterus, bladder, bowel, adnexa, abdom/pelvic anne Post-Operative Diagnosis: Same as Pre-op Surgeon: Mahesh Enriquez Locker Operator: Kavon Marsh Anesthesiologist/VIDEO NETWORK ENGINEER: Erasmo Howe Anesthesia: General Specimens Removed: Uterus. Bilat ovaries and tubes Estimated Blood Loss (mls): 200 Drains & Tubes with Location: [place] cath Drains, Volume Out (mls): 300 Blood Volume Replaced (mls): 0 Fluid Volume Replaced (mls): 1,200 Operative Report Dictated: Yes
[2017-05-23] MEDS ORDERED: HYDROmorphone *PCA* 10MG/50ML DISP.SYRIN PCA SCH (12:15)
[2017-05-23] MEDS ORDERED: HYDROmorphone *PCA* 10MG/50ML DISP.SYRIN PCA ONE (12:45)
[2017-05-23 17:08] LABS: ANION GAP 9 (8-16); CALCIUM 8.8 mg/dL (8.5-10.1); CO2 27 mmol/L (21-32); CREATININE 0.8 mg/dL (0.55-1.02); GLUCOSE,RANDOM 132 mg/dL (74-106)
[2017-05-23] MEDS ORDERED: PCA PUMP KEY 1 EACH EACH ONE (17:54)
[2017-05-23 18:02] LABS: MCH 24.4 pg (25.7-33.7); MCHC 31.3 g/dl (32.0-36.0); MEAN PLT VOLUME 9.5 fl (7.5-11.1); PLATELET COUNT 253 K/MM3 (134-434); RDW 16.7 % (11.6-15.6)
[2017-05-23 19:08] LABS: PLATELET ESTIMATE ADEQUATE (NORMAL)
[2017-05-23] MEDS ORDERED: HYDROmorphone HCL CARPU-JECT 1 MG/1 ML DISP.SYRIN IVPB PRN (19:08)
[2017-05-23 19:09] LABS: TOTAL CELLS COUNTED 100
[2017-05-23] MEDS ORDERED: IBUPROFEN 800 MG/8 ML IJ IVPB PRN (19:09)
--- NOTE | 2017-05-23 19:46 | PN ---
Progress Note (short form) - Note Progress Note: KELLY Ceja called to say patient is disoriented and trying to get up and walk while on Dilaudid CARE ASSOCIATE.So evaluated the patient she is not AO3.She is little bit disoriented so DC CARE ASSOCIATE and put patient on Dilaudid PRN and Cadolor PRN .Patient does c/o pain score of 7-8/10 but does not look in any discomfort or a lot of pain at allWill f/u.
[2017-05-23] MEDS: CEFAZOLIN 2 GM/D5W 50 ML IVPB SCH (20:00)
[2017-05-23] MEDS: LACTATED RINGERS SOLUTION 1,000 ML IV SCH (21:00)
--- NOTE | 2017-05-23 21:03 | PN ---
Progress Note (short form) - Note Progress Note: 46 yo P0 s/p SCOTT/BSO/DIOGENES, called to see patient, since she attempted get out of bed, and appeared somewhat disoriented to the nurses. Came to evaluate the patient, her VSS, O2 Sat are stable She is A&O x 3, not agitated, but speech is slightly blurred and she makes some verbal mistakes, which she recognizes and corrects herself She has normal muscle strength Discussed with Dr. 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
[2017-05-24] MEDS: CEFAZOLIN 2 GM/D5W 50 ML IVPB SCH ×2 (02:08→09:32)
[2017-05-24] MEDS: ACETAMINOPHEN 1000 MG/100 ML VIAL (NON FORMULARY) IVPB PRN ×2 (02:08→08:32)
[2017-05-24] MEDS ORDERED: IBUPROFEN 800 MG/8 ML IJ IVPB PRN (02:35)
[2017-05-24 08:48] LABS: BASOPHIL 0.4 % (0-2.0); EOSINOPHIL 0.1 % (0-4.5); MCH 24.4 pg (25.7-33.7); MCHC 31.3 g/dl (32.0-36.0); MEAN PLT VOLUME 9.2 fl (7.5-11.1); NEUTROPHILS 80.9 % (42.8-82.8); PLATELET COUNT 194 K/MM3 (134-434); RDW 16.9 % (11.6-15.6); WHITE BLOOD COUNT 11.3 K/mm3 (4.0-10.0)
[2017-05-24 09:05] LABS: ALBUMIN 2.7 g/dl (3.4-5.0); ALK PHOS 53 U/L (45-117); ANION GAP 4 (8-16); BILIRUBIN,TOTAL 0.4 mg/dL (0.2-1.0); CO2 30 mmol/L (21-32); CREATININE 0.5 mg/dL (0.55-1.02); GLUCOSE,RANDOM 93 mg/dL (74-106); SGOT/AST 27 U/L (15-37); SGPT/ALT 29 U/L (12-78); TOT PROT 5.3 g/dl (6.4-8.2)
--- NOTE | 2017-05-24 09:54 | PN ---
Progress Note (SOAP) - Subjective Chief Complaint: well postop, pain controlled well, (+) flatus, normal mental status and in good spirits. History of Present Illness: POD#1 s/p SCOTT, BSO, DIOGENES - Current Medications Current Medications: Active Medications Acetaminophen (Ofirmev Injection -) 1,000 mg IVPB Q5H PRN Last Admin: 05/24/17 08:32 Dose: 1,000 mg Enoxaparin Sodium (Lovenox -) 40 mg SQ DAILY SCOTT Cefazolin Sodium/Dextrose (Ancef 2 Gm Premixed Ivpb -) 50 mls @ 100 mls/hr IVPB Q8H-IV SCOTT Stop: 05/24/17 10:29 Last Admin: 05/24/17 09:32 Dose: 100 mls/hr Lactated Ringer's (Lactated Ringers Solution) 1,000 mls @ 125 mls/hr IV ASDIR SCOTT Last Admin: 05/23/17 21:00 Dose: 125 mls/hr Ibuprofen (Caldolor Injection -) 600 mg IVPB Q6H PRN PRN Reason: PAIN Last Admin: 05/24/17 03:18 Dose: 600 mg Oxycodone HCl (Roxicodone -) 10 mg PO Q4H PRN PRN Reason: SEVERE PAIN Stop: 05/24/17 12:01 - Objective Vital Signs: Vital Signs Temperature 98.0 F 05/24/17 05:45 Pulse Rate 74 05/24/17 05:45 Respiratory Rate 18 05/24/17 05:45 Blood Pressure 108/69 05/24/17 05:45 O2 Sat by Pulse Oximetry (%) 97 05/23/17 21:00 Constitutional: Yes: Well Nourished, No Distress, Calm Eyes: Yes: WNL, Conjunctiva Clear, EOM Intact HENT: Yes: WNL, Atraumatic, Normocephalic Neck: Yes: WNL, Supple, Trachea Midline Cardiovascular: Yes: WNL, Regular Rate and Rhythm Respiratory: Yes: WNL, Regular, CTA Bilaterally Gastrointestinal: Yes: Normal Bowel Sounds, Soft, Abdomen, Obese ...Rectal Exam: Yes: Deferred Genitourinary: Yes: WNL, [place] Present Musculoskeletal: Yes: WNL Extremities: Yes: WNL Peripheral Pulses WNL: Yes Peripheral Pulses: Left Doralis Pedis: 2+, Right Dorsalis Pedis: 2+ Edema: No Integumentary: Yes: WNL Wound/Incision: Yes: Clean/Dry, Well Approximated, Sutures Intact Neurological: Yes: WNL, Alert, Oriented ...Motor Strength: Yes: WNL Psychiatric: Yes: WNL, Alert, Oriented Labs Lab Results: CBC, BMP 05/24/17 08:00 05/24/17 08:00 Assessment/Plan 46yo POD#1 s/p SCOTT, BSO, DIOGENES. pt is doing well, afebrile Asymptomatic for s/sx's of anemia Ambulation encouraged D/C [place] cath Advance diet Incentive spirometry encouraged Surgery and findings d/w pt
[2017-05-24] MEDS: ENOXAPARIN NA (PORCINE) 40 MG/0.4 ML DISP.SYRIN SQ SCH (11:09)
--- NOTE | 2017-05-24 11:49 | PN ---
Progress Note (short form) - Note Progress Note: Anesthesia Post op Pt seen and examined S;Alert and awake eating breakfast O: Vital Signs Temperature 98.0 F 05/24/17 05:45 Pulse Rate 74 05/24/17 05:45 Respiratory Rate 18 05/24/17 05:45 Blood Pressure 108/69 05/24/17 05:45 O2 Sat by Pulse Oximetry (%) 97 05/23/17 21:00 CBC, BMP 05/24/17 08:00 05/24/17 08:00 A/P:s/p supracervical Hysterectomy BSO H/O Confusion post op No neuro or psychologic changes noted Doing well post op Continue current care Erasmo Howe MD
--- NOTE | 2017-05-24 13:20 | PATH ---
Surgical Pathology Report Patient Name: BHUPINDER CHILDRESS [facility]. Rec. 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 Dr. Sanchez, . Final Diagnosis FALLOPIAN TUBE AND OVARY, RIGHT, SALPINGO-OOPHORECTOMY: OVARY WITH ENDOMETRIOSIS/ENDOMETRIOMA, CYSTIC FOLLICLES AND EXTENSIVE TUBO-OVARIAN ADHESIONS. BENIGN FALLOPIAN TUBE WITH EXTENSIVE FIBROUS, FIBROVASCULAR AND FIBRINOHEMORRHAGIC ADHESIONS. NO MALIGNANCY IDENTIFIED. Electronically Signed Francisco Sanchez M.D. Gross Description Received fresh labeled "right tube and ovary" is a 5.0 x 3.5 x 2.4 cm previously opened ovary with an attached 5 cm in length portion of fallopian tube. No definite fimbria are identified. The outer surface of the fallopian tube is peoples-purple with dense tubal-ovarian adhesions. Sectioning reveals a dilated lumen. Sectioning of the ovarian parenchyma reveals multiple hemorrhagic cystic structures. A inside outside sales representative section is submitted for frozen section. Financial Professional sections are submitted in 9 cassettes as follows: 1-frozen section residue; 2-3-cross sections of fallopian tube; 7-7-llspodcirlkuif ovary. /05/23/2017 [facility]05/23/2017
[2017-05-24] MEDS: LACTATED RINGERS SOLUTION 1,000 ML IV SCH (14:00)
[2017-05-24] MEDS ORDERED: oxyCODONE HCL 5 MG TABLET PO PRN (15:02)
[2017-05-24] MEDS: oxyCODONE HCL 5 MG TABLET PO PRN ×2 (15:08→21:31)
[2017-05-24] MEDS: ACETAMINOPHEN 325 MG TABLET (FP) PO PRN ×2 (15:09→21:35)
[2017-05-24] MEDS: IBUPROFEN 600 MG TABLET (FP) PO PRN ×2 (15:09→21:36)
[2017-05-24] MEDS ORDERED: FLUoxetine HCL 20 MG CAPSULE (FP) PO SCH (15:15)
[2017-05-25] MEDS: IBUPROFEN 600 MG TABLET (FP) PO PRN (06:44)
[2017-05-25] MEDS: oxyCODONE HCL 5 MG TABLET PO PRN (06:44)
[2017-05-25 08:24] LABS: BASOPHIL 0.6 % (0-2.0); EOSINOPHIL 2.2 % (0-4.5); MCH 24.9 pg (25.7-33.7); MCHC 31.5 g/dl (32.0-36.0); MEAN PLT VOLUME 9.3 fl (7.5-11.1); NEUTROPHILS 69.6 % (42.8-82.8); PLATELET COUNT 197 K/MM3 (134-434); RDW 16.7 % (11.6-15.6); WHITE BLOOD COUNT 7.8 K/mm3 (4.0-10.0)
[2017-05-25] MEDS ORDERED: FLU VACC QS2017-18 36MOS UP/PF 60 MCG/0.5 ML SYRINGE IM ONE (09:00)
--- NOTE | 2017-05-25 09:00 | PN ---
Progress Note (SOAP) - Subjective Chief Complaint: well postop, pain controlled well, (+) flatus, normal mental status. History of Present Illness: POD#2 s/p SCOTT, BSO, DIOGENES - Current Medications Current Medications: Active Medications Acetaminophen (Ofirmev Injection -) 1,000 mg IVPB Q5H PRN Last Admin: 05/24/17 08:32 Dose: 1,000 mg Acetaminophen (Tylenol -) 650 mg PO Q4H PRN PRN Reason: FEVER OR PAIN Last Admin: 05/24/17 21:35 Dose: 650 mg Enoxaparin Sodium (Lovenox -) 40 mg SQ DAILY [facility] Last Admin: 05/24/17 11:09 Dose: 40 mg Fluoxetine HCl (Prozac -) 80 mg PO DAILY [facility] Last Admin: 05/24/17 16:41 Dose: 80 mg Ibuprofen (Motrin -) 600 mg PO Q4H PRN PRN Reason: PAIN Last Admin: 05/25/17 06:44 Dose: 600 mg Oxycodone HCl (Roxicodone -) 10 mg PO Q4H PRN Last Admin: 05/25/17 06:44 Dose: 10 mg - Objective Vital Signs: Vital Signs Temperature 98.3 F 05/24/17 14:06 Pulse Rate 82 05/24/17 14:06 Respiratory Rate 18 05/24/17 14:06 Blood Pressure 126/77 05/24/17 14:06 O2 Sat by Pulse Oximetry (%) 96 05/24/17 09:00 Constitutional: Yes: Well Nourished, No Distress, Calm Eyes: Yes: WNL, Conjunctiva Clear, EOM Intact HENT: Yes: WNL, Atraumatic, Normocephalic Neck: Yes: WNL, Supple, Trachea Midline Cardiovascular: Yes: WNL, Regular Rate and Rhythm Respiratory: Yes: WNL, Regular, CTA Bilaterally Gastrointestinal: Yes: WNL, Normal Bowel Sounds, Soft Genitourinary: Yes: WNL Breast(s): Yes: WNL Musculoskeletal: Yes: WNL Extremities: Yes: WNL Peripheral Pulses WNL: Yes Edema: No Integumentary: Yes: WNL Wound/Incision: Yes: Clean/Dry, Well Approximated Neurological: Yes: WNL, Alert, Oriented ...Motor Strength: Yes: WNL Psychiatric: Yes: WNL Labs Lab Results: CBC, BMP 05/25/17 07:35 05/24/17 08:00 Assessment/Plan 46yo POD#2 s/p SCOTT, BSO, DIOGENES. pt is doing well, afebrile Asymptomatic for s/sx's of anemia Ambulation encouraged Diet tolerated Postop instructions discussed. Plan to d/c home today
[2017-05-25] MEDS: ENOXAPARIN NA (PORCINE) 40 MG/0.4 ML DISP.SYRIN SQ SCH (09:41)
[2017-05-25 11:12] VITALS: BP 133/68; PULSE 87; TEMP 99.7
--- NOTE | 2017-05-25 14:35 | PATH ---
Surgical Pathology Report Patient Name: BHUPINDER CHILDRESS [facility]. Rec. 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 UTERUS AND FIBROIDS, ABDOMINAL SUPRACERVICAL HYSTERECTOMY: CERVICAL STUMP: WITHOUT SIGNIFICANT PATHOLOGIC CHANGES. ENDOMETRIUM: ENDOMETRIAL POLYP; BACKGROUND SECRETORY ENDOMETRIUM. MYOMETRIUM: LEIOMYOMATA WITH FOCAL DEGENERATIVE CHANGES (LARGEST 5.0 CM). UTERINE SEROSA: WITHOUT SIGNIFICANT PATHOLOGIC CHANGES. B. OVARY AND FALLOPIAN TUBE, LEFT, SALPINGO-OOPHORECTOMY: OVARY WITH HEMORRHAGIC CORPUS LUTEUM CYST, CYSTIC FOLLICLE AND EXTENSIVE FIBROVASCULAR AND FIBRINOHEMORRHAGIC ADHESIONS. FALLOPIAN TUBE WITH EXTENSIVE TUBO-OVARIAN FIBROUS AND FIBRINOHEMORRHAGIC ADHESIONS. NO MALIGNANCY IDENTIFIED. Comment: Also refer to [id number] for the right ovary pathology results. Electronically Signed Francisco Sanchez M.D. Gross Description A. Received in formalin labeled "uterus and fibroids" is a 321 g supracervically amputated uterus with no attached adnexa. The specimen measures 10.4 cm from left to right, 8.8 cm from anterior to posterior and 7.6 cm from superior to inferior. The serosa is salas peoples with adhesions and focal subserosal nodules. The endometrial cavity measures 5 cm in length and 2.0 cm from cornu to cornu. The endometrium displays a 0.8 cm greatest dimension salas polypoid lesion. The remaining endometrium is salas and averages 0.3 cm in thickness. Sectioning of the myometrium displays multiple intramural nodules measuring up to 5.0 cm in greatest dimension with salas-white whorled cut surface One of the intramural nodules displays focal softening. The remaining subserosal and intramural nodules are salas, firm to rubbery and display whorled architecture. Dry Cleaning Teacher sections are submitted in 9 cassettes as follows: 1-cervical stump margin of resection; 2-endomyometrium with endometrial polyp; 3-5-vhkcdoqdvo endomyometrium; 6-subserosal nodules; 3-2-kkabwzvrik nodule with softening; 0-23-mwnoqdfqvq intramural nodules. B. Received in formalin labeled "left ovary and tube" is a 6.0 x 4.0 x 2.1 cm salas-peoples ovary. The outer surface displays fibrous adhesions as well as an attached 4 cm in length portion of fallopian tube. No definite fimbriae are identified. The outer surface displays dense tubal ovarian adhesions. Sectioning of the fallopian tube reveals an unremarkable lumen. Sectioning of the ovary displays a 2.8 cm in greatest dimension hemorrhagic cyst. The remaining ovarian parenchyma is salas and unremarkable. Dry Cleaning Teacher sections are submitted in 7 cassettes as follows: 6-2-rfxkddklg tube; 0-4-mznzwmjdptk ovarian cyst; 0-4-pkelgknuyd ovarian parenchyma. 05/24/2017 [facility]05/24/2017
--- NOTE | 2017-05-27 08:34 | OP ---
DATE OF OPERATION: 05/24/2017 PREOPERATIVE DIAGNOSES: Chronic pelvic pain, right pelvic mass, menometrorrhagia, fibroid uterus, pelvic adhesions. POSTOPERATIVE DIAGNOSES: Chronic pelvic pain, right pelvic mass, menometrorrhagia, fibroid uterus, pelvic adhesions. PROCEDURE: Exploratory laparotomy, supracervical hysterectomy, bilateral salpingo-oophorectomy, lysis of multiple severe adhesions that extended surgery by at least 1 hour. SURGEON: Lincoln Enriquez MD CO-SURGEON: Kavon Marsh MD JUSTIFICATION FOR CO-SURGEON: Complexity of the surgery requiring extensive dissection and patient's comorbidities which required presence of CALL WORKER PERSON oncologist, Dr. Kavon Marsh. Also, suspicion for possible ovarian malignancy. FINDINGS: Upon entry into the abdomen, massive dense adhesions were noted between the omentum and the uterus and anterior abdominal wall. The uterus was also densely adherent to the bladder. The ovaries and fallopian tubes were encased in dense pelvic adhesions between colon, small bowel, omentum, pelvic sidewalls, and the anterior abdominal wall. The uterus contained fibroids. The left ovary and fallopian tube were encased in dense adhesions. The left ovary contained what appeared to be an adnexal mass. The right ovary and fallopian tube were densely adherent to the ascending colon and also appeared to contain an adnexal mass. ANESTHESIA: General endotracheal. ANESTHESIOLOGIST: Erasmo Howe MD ESTIMATED BLOOD LOSS: 200 mL. URINE OUTPUT: Clear urine, 300 mL, at the end of the procedure. The urine was stained blue due to previous injection of methylene blue. FLUID IV: Crystalloid, 1200 mL. PROCEDURE: The patient was met preoperatively. Risks, benefits, and alternatives of surgery were discussed in detail. All questions were answered. The patient was then brought to the OR with the IV running. She was placed on the surgical table in the supine position. The patient was examined under anesthesia and noted to have a very large immobile uterus. The decision was then made to proceed with the exploratory laparotomy. The patient was prepped and draped in the usual sterile fashion. A Hoyos catheter was inserted and left to drain to gravity. The surgeons then regloved and proceeded with the operation. A Pfannenstiel skin incision was made with a knife. The incision was taken down to the level of fascia. The fascia was incised in the midline and the incision was extended bilaterally using Miller scissors. The decision was then made to proceed with Maylard incision, so the rectus muscle was transected bilaterally using cautery. The peritoneum was identified and entered sharply. Upon entry of the peritoneum, massive dense adhesions were noted between the anterior abdominal wall and small bowel, large bowel, uterus, and bladder. Extensive dissection was then performed to free up the bowel and the uterus. The uterus was brought out of the incision and was noted to contain fibroids. The left adnexa was then dissected to free up the left ovary and fallopian tube. Massive dense adhesions were lysed. The retroperitoneum was entered and the left ureter was traced from the pelvic brim down to the cardinal ligament. The left ovary and fallopian tube were then excised with good hemostasis. The attention was then turned to the right side. However, right side was densely adherent to the pelvic sidewall and bowel. The decision was then made to proceed with the hysterectomy. The right uteroovarian ligament was clamped, transected with good hemostasis. The dissection was then turned to bladder. The bladder was densely adherent to the uterus. The bladder was carefully dissected away from the uterus using sharp dissection. The bladder was retracted downwards. The broad ligament was then dissected bilaterally towards the cardinal ligament. The uterine blood vessels were clamped and cut using Miller scissors. Due to extensive bleeding at that point, the decision was then made to proceed with a supracervical hysterectomy. Therefore, the uterus was amputated at the level of the internal cervical os. The uterus was sent to Pathology. The cervical stump was sutured using several interrupted 0 Vicryl sutures. The left pelvic sidewall was then opened to gain access to retroperitoneum. The left adnexa was carefully dissected away from the bowel. Multiple dense adhesions were lysed. At that point, once the left adnexal mass was dissected, it was sent for frozen section to confirm that it was the left ovary and cyst and to request confirmation that no bowel was included. Once the frozen section confirmed that no bowel was included and that the right adnexal mass was indeed removed, the surgeons proceeded to dissect the right ureter. The ureter was traced from the pelvic brim to the cardinal ligament and appeared to be intact. Methylene blue was also injected to confirm integrity of the ureteral system. Additional hemostasis was also obtained using FloSeal. Once this was completed, good hemostasis was confirmed. The peritoneum was closed with 0 Vicryl suture. The rectus muscles were approximated using several interrupted 0 Vicryl sutures. The fascia was closed using a 0 Vicryl suture in a running stitch. The subcutaneous adipose tissues were approximated to eliminate space. The skin was closed using surgical glue. The patient tolerated procedure well. She was transferred to recovery room awake and in stable condition. LINCOLN ENRIQUEZ M.D. [id number]
== END 2017-05-25 09:50 | disposition home or self-care (01) | DRG 743 ==
LOC: JSAMEDAYSX 06:09 → EDSTATUS 10:00 → J3W 15:00
PROVIDERS: ADMIT Obstetrics & Gynecology; ATTEND Obstetrics & Gynecology
PROC: 0UT90ZZ Resection of Uterus, Open Approach (ICD-10-PCS; principal; 2017-05-24)
PROC: 0UT70ZZ Resection of Bilateral Fallopian Tubes, Open Approach (ICD-10-PCS; 2017-05-24)
PROC: 0UT20ZZ Resection of Bilateral Ovaries, Open Approach (ICD-10-PCS; 2017-05-24)
PROC: 0DNW0ZZ Release Peritoneum, Open Approach (ICD-10-PCS; 2017-05-24)
DX: D25.9 Leiomyoma of uterus, unspecified (principal); N92.1 Excessive and frequent menstruation with irregular cycle; N73.6 Female pelvic peritoneal adhesions (postinfective); R19.09 Other intra-abdominal and pelvic swelling, mass and lump; I34.0 Nonrheumatic mitral (valve) insufficiency; I87.2 Venous insufficiency (chronic) (peripheral); J45.909 Unspecified asthma, uncomplicated; K57.90 Diverticulosis of intestine, part unspecified, without perforation or abscess without bleeding; Z87.442 Personal history of urinary calculi
CPT/HCPCS: 36415; 80048; 80053; 84702; 85025; 85027; 86850; 86900; 86901; 88305-TC; 88307-TC; 88331-TC; 90686; 94760; G0008

== ENCOUNTER 2017-06-14 15:48 | Emergency (ER) | payer BC ==
[2017-06-14 15:58] VITALS: BMI 35.1
--- NOTE | 2017-06-14 17:06 | PDOC ---
History of Present Illness - General Chief Complaint: Pain Stated Complaint: PCP SENT/Abd pain Time Seen by Provider: 06/14/17 17:05 - History of Present Illness Initial Comments: 06/14/17 17:08 Ms. Kramer is a 46 yo female with a significant past medical history of anemia, asthma and diverticulosis, MVP, PID, and fibroids s/p bilateral salpingectomy/oopherectomy with hysterectomy May 23 who presents to the emergency department with continuing severe abdominal pain post surgery. She says that the site is red and angry and that she has been experiencing fevers and chills since the surgery. The patient denies chest pain, shortness of breath, headache and dizziness. Denies nausea, vomit, diarrhea and constipation. Denies dysuria, frequency, urgency and hematuria. Allergies: chlorperazine, morphine Past History - Past Medical History Allergies/Adverse Reactions: Allergies Allergy/AdvReac Type Severity Reaction Status Date / Time prochlorperazine edisylate Allergy Intermediate "JAW KEEPS Verified 05/19/17 11: 18 [From Compazine] MOVING SIDE TO SIDE" morphine AdvReac "VOMITING" Verified 05/23/17 07:03 Home Medications: Ambulatory Orders Triamterene/Hydrochlorothiazid [Dyazide 37.5-25 Capsule] 1 each PO DAILY Clonazepam [Klonopin] 2 mg PO BID 04/07/17 Ferrous Sulfate 325 mg PO DAILY 04/07/17 Fluoxetine HCl [Prozac] 80 mg PO DAILY 04/07/17 Oxycodone HCl/Acetaminophen [Percocet 5-325 mg Tablet] 1 tab PO Q4H PRN #15 tablet MDD 6 05/16/17 Pantoprazole Sodium [Protonix] 40 mg PO DAILY #30 tablet. 05/16/17 Benztropine Mesylate 0.5 mg PO DAILY PRN 05/19/17 Oxycodone HCl/Acetaminophen [Percocet 5-325 mg Tablet -] 1 - 2 tab PO Q6H PRN # 20 tab MDD 8 05/25/17 Levofloxacin [Levaquin -] 500 mg PO DAILY #7 tablet 06/15/17 Metronidazole [Flagyl] 500 mg PO BID #14 tablet 06/15/17 Anemia: Yes Asthma: Yes Cancer: No Cardiac Disorders: Yes (MVP) CVA: No COPD: No CHF: No Dementia: No Diabetes: No (PRE DIABETIC) GI Disorders: Yes (DIVERTICULOSIS) Disorders: No HTN: No Hypercholesterolemia: No Liver Disease: No Seizures: No Thyroid Disease: No - Surgical History Abdominal Surgery: No (etopic preg, fibroids) Appendectomy: No Cardiac Surgery: No Cholecystectomy: No Lung Surgery: No Neurologic Surgery: No Orthopedic Surgery: No - Suicide/Smoking/Psychosocial Hx Smoking History: Current every day smoker Have you smoked in the past 12 months: No Number of Cigarettes Smoked Daily: 10 Information on smoking cessation initiated: No 'Breaking Loose' booklet given: 06/14/17 Hx Alcohol Use: No Drug/Substance Use Hx: No Substance Use Type: None Hx Substance Use Treatment: No Review of Systems - Review of Systems Comments:: 06/14/17 17:09 GENERAL/CONSTITUTIONAL: No fever or chills. No weakness. HEAD, EYES, EARS, NOSE AND THROAT: No change in vision. No ear pain or discharge. No sore throat. CARDIOVASCULAR: No chest pain or shortness of breath RESPIRATORY: No cough, wheezing, or hemoptysis. GASTROINTESTINAL: +Significant abdominal pain for 3 weeks following surgery. Occasional nausea with pain as well as constipation. No diarrhea. GENITOURINARY: No dysuria, frequency, or change in urination. MUSCULOSKELETAL: No joint or muscle swelling or pain. No neck or back pain. SKIN: No rash NEUROLOGIC: No headache, vertigo, loss of consciousness, or change in strength/ sensation. ENDOCRINE: No increased thirst. No abnormal weight change HEMATOLOGIC/LYMPHATIC: No anemia, easy bleeding, or history of blood clots. ALLERGIC/IMMUNOLOGIC: No hives or skin allergy. *Physical Exam - Vital Signs Last Vital Signs Temp Pulse Resp BP Pulse Ox 98.3 F 65 18 128/69 98 06/14/17 15:56 06/14/17 15:56 06/14/17 15:56 06/14/17 15:56 06/14/17 15:56 - Physical Exam Comments: 06/14/17 17:09 GENERAL: Awake, alert, and fully oriented, in no acute distress HEAD: No signs of trauma, normocephalic, atraumatic EYES: PERRLA, EOMI, sclera anicteric, conjunctiva clear ENT: Auricles normal inspection, hearing grossly normal, nares patent, oropharynx clear without exudates. Moist mucosa NECK: Normal ROM, supple, no lymphadenopathy, JVD, or masses LUNGS: No distress, speaks full sentences, clear to auscultation bilaterally HEART: Regular rate and rhythm, normal S1 and S2, no murmurs, rubs or gallops, peripheral pulses normal and equal bilaterally. ABDOMEN: +Lower abdominal bilateral tenderness to palpation. Well healing incision site without erythema or exudate. Soft, normoactive bowel sounds. No guarding, no rebound. No masses EXTREMITIES: Normal inspection, Normal range of motion, no edema. No clubbing or cyanosis. NEUROLOGICAL: Cranial nerves II through XII grossly intact. Normal speech, normal gait, no focal sensorimotor deficits SKIN: Warm, Dry, normal turgor, no rashes or lesions noted. ED Treatment Course - LABORATORY CBC & Chemistry Diagram: 06/14/17 18:28 06/14/17 18:28 Medical Decision Making - Medical Decision Making 06/14/17 19:00 Patient presents with 3 weeks of post-op abdominal pain refractory to percocet after hysterecomy with extensive adhesion/fibroid removal. Discussed case with surgeon (Dr. Enriquez), recommended CT to rule out acute pathology. Care taken over by Dr. Maguire. *DC/Admit/Observation/Transfer Diagnosis at time of Disposition: Sigmoid diverticulitis Abdominal pain Qualifiers: Abdominal location: lower abdomen, unspecified Qualified Code(s): R10.30 - Lower abdominal pain, unspecified; R10.30 - Lower abdominal pain, unspecified - Discharge Dispostion Disposition: HOME - Prescriptions Prescriptions: Metronidazole [Flagyl] 500 mg PO BID #14 tablet Levofloxacin [Levaquin -] 500 mg PO DAILY #7 tablet - Referrals Referrals: Heron Britton MD [Staff Physician] - John Hester MD [Primary Care Provider] - - Patient Instructions Printed Discharge Instructions: DI for Diverticulitis
--- NOTE | 2017-06-14 18:28 | PDOC ---
Attending Attestation - Resident Resident Name: Moe Steward - ED Attending Attestation I have performed the following: I have examined & evaluated the patient, The case was reviewed & discussed with the resident, I agree w/resident's findings & plan, Exceptions are as noted - HPI HPI: 06/14/17 18:21 46yo F hx recent hysterectomy + b/l oopherectomy p/w 05/15 abd pain proximal to incision. Pt was concerned that site was red and infected but reports her surgeon Dr. Enriquez saw the incision and cleared it. Reports her percocet prescription ran out a few days ago. +nausea, no vomiting. Last BM today was normal. Pt called Dr. Enriquez today who advised her to come to the ED for a CTAP. Denies fevers, chills, CP, SOB, diarrhea, LE edema, weakness - Physicial Exam PE: 06/14/17 19:18 GENERAL: Awake, alert, and fully oriented, in no acute distress HEAD: No signs of trauma EYES: PERRLA, EOMI, sclera anicteric, conjunctiva clear ENT: Auricles normal inspection, hearing grossly normal, nares patent, oropharynx clear without exudates. Moist mucosa NECK: Normal ROM, supple, no lymphadenopathy, JVD, or masses LUNGS: Breath sounds equal, clear to auscultation bilaterally. No wheezes, and no crackles HEART: Regular rate and rhythm, normal S1 and S2, no murmurs, rubs or gallops ABDOMEN: transverse lower abd incision c/d/i. abdomen soft, ttp proximal to the incision with no palpable collections, normoactive bowel sounds. No guarding, no rebound. No masses EXTREMITIES: Normal range of motion, no edema. No clubbing or cyanosis. No cords, erythema, or tenderness NEUROLOGICAL: Normal speech, cranial nerves intact, negative pronator drift, 5/ 5 strength in all 4 extremities, normal sensation to light touch in all 4 extremities, normal cerebellar exam, normal gait, normal reflexes and tone SKIN: Warm, Dry, normal turgor, no rashes or lesions noted. - Medical Decision Making 06/14/17 19:19 46-year-old female with a hysterectomy and bilateral oophrectomy on May presents with progressive pain proximal to the incision. Vitals are unremarkable. Exam with tenderness to palpation proximal to the incision. Will obtain a CT scan to evaluate for postop collection versus obstruction versus appendicitis versus colitis versus other acute intra-abdominal pathology. WIll check a UA to eval for UTI. Dr. Zamora spoke with Dr. Enriquez who requests a CT scan as well. -labs -UA -CTAP -pain control -reassess 06/14/17 19:22 Pt signed out to oncoming attending for further eval/management
[2017-06-14] MEDS ORDERED: ACETAMINOPHEN 1000 MG/100 ML VIAL (NON FORMULARY) IVPB ONE (18:29)
[2017-06-14 18:38] LABS: BASOPHIL 1.3 % (0-2.0); EOSINOPHIL 2.3 % (0-4.5); MCHC 31.7 g/dl (32.0-36.0); MEAN PLT VOLUME 9.2 fl (7.5-11.1); NEUTROPHILS 68.6 % (42.8-82.8); PLATELET COUNT 267 K/MM3 (134-434); RDW 16.9 % (11.6-15.6); WHITE BLOOD COUNT 6.7 K/mm3 (4.0-10.0)
[2017-06-14] MEDS ORDERED: ACETAMINOPHEN INJECTION 100 ML IVPB ONE (18:41)
[2017-06-14 19:31] LABS: ALBUMIN 3.5 g/dl (3.4-5.0); ALK PHOS 68 U/L (45-117); ANION GAP 6 (8-16); BILIRUBIN,TOTAL 0.4 mg/dL (0.2-1.0); CALCIUM 9.1 mg/dL (8.5-10.1); CO2 31 mmol/L (21-32); CREATININE 0.7 mg/dL (0.55-1.02); GLUCOSE,RANDOM 85 mg/dL (74-106); SGOT/AST 18 U/L (15-37); SGPT/ALT 27 U/L (12-78)
[2017-06-14 22:38] LABS: URINE APPEARANCE CLEAR; URINE BILIRUBIN NEGATIVE (NEGATIVE); URINE BLOOD NEGATIVE (NEGATIVE); URINE COLOR LTYELLOW; URINE GLUCOSE (UA) NEGATIVE (NEGATIVE); URINE KETONE NEGATIVE (NEGATIVE); URINE NITRITE NEGATIVE (NEGATIVE); URINE PROTEIN NEGATIVE (NEGATIVE); URINE UROBILINOGEN NEGATIVE mg/dL (0.2-1.0)
[2017-06-15] MEDS ORDERED: KETOROLAC TROMETHAMINE 30 MG/1 ML VIAL IVPUSH ONE (00:36)
[2017-06-15] MEDS ORDERED: KETOROLAC TROMETHAMINE 30 MG/1 ML VIAL ONE (00:43)
--- NOTE | 2017-06-15 01:17 | PDOC ---
*Physical Exam - Vital Signs Last Vital Signs Temp Pulse Resp BP Pulse Ox 98.3 F 65 18 128/69 98 06/14/17 15:56 06/14/17 15:56 06/14/17 15:56 06/14/17 15:56 06/14/17 15:56 ED Treatment Course - LABORATORY CBC & Chemistry Diagram: 06/14/17 18:28 06/14/17 18:28 - ADDITIONAL ORDERS Additional order review: Laboratory Results 06/14/17 06/14/17 22:01 18:28 Sodium 138 Potassium 4.4 D Chloride 101 Carbon Dioxide 31 Anion Gap 6 L BUN 12 D Creatinine 0.7 D Creat Clearance w eGFR > 60 Random Glucose 85 Calcium 9.1 Total Bilirubin 0.4 AST 18 D ALT 27 Alkaline Phosphatase 68 D Total Protein 7.0 D Albumin 3.5 D Urine Color Ltyellow Urine Appearance Clear Urine pH 7.0 D Urine Protein Negative Urine Glucose (UA) Negative Urine Ketones Negative Urine Blood Negative Urine Nitrite Negative Urine Bilirubin Negative Urine Urobilinogen Negative 06/14/17 18:28 RBC 4.63 D MCV 79.0 L MCHC 31.7 L RDW 16.9 H MPV 9.2 Neutrophils % 68.6 Lymphocytes % 19.8 Monocytes % 8.0 Eosinophils % 2.3 Basophils % 1.3 - Medications Given in the ED: ED Medications Discontinued Medications Generic Name Dose Route Start Last Admin Trade Name Bobby PRN Reason Stop Dose Admin Acetaminophen 1,000 mg 06/14/17 18:29 06/14/17 18:41 Ofirmev Injection - IVPB 06/14/17 18:30 1,000 mg ONCE ONE Administration Ketorolac Tromethamine 30 mg 06/15/17 00:36 06/15/17 00:40 Toradol Injection - IVPUSH 06/15/17 00:37 30 mg ONCE ONE Administration *DC/Admit/Observation/Transfer Diagnosis at time of Disposition: Abdominal pain, Sigmoid diverticulitis - Discharge Dispostion Disposition: HOME Admit: No - Prescriptions Prescriptions: Metronidazole [Flagyl] 500 mg PO BID #14 tablet Levofloxacin [Levaquin -] 500 mg PO DAILY #7 tablet - Referrals Referrals: John Hester MD [Primary Care Provider] - Heron Britton MD [Staff Physician] - - Patient Instructions Printed Discharge Instructions: DI for Diverticulitis
[2017-06-15] MEDS ORDERED: metroNIDAZOLE 250 MG TABLET PO ONE (01:18)
[2017-06-15] MEDS ORDERED: LEVOFLOXACIN 500 MG TABLET (FP) PO ONE (01:18)
[2017-06-15] MEDS ORDERED: metroNIDAZOLE 250 MG TABLET ONE (01:26)
[2017-06-15] MEDS ORDERED: LEVOFLOXACIN 500 MG TABLET (FP) ONE (01:26)
[2017-06-15 01:31] VITALS: BP 111/57; PULSE 53; TEMP 97.9
[2017-06-15 10:24] LABS: URINE LEUK ESTERASE Negative (NEGATIVE)
== END 2017-06-15 01:38 | disposition home or self-care (01) ==
LOC: JER 15:48
PROC: 3E0333Z Introduction of Anti-inflammatory into Peripheral Vein, Percutaneous Approach (ICD-10-PCS; principal; 2017-06-14)
PROC: 3E033NZ Introduction of Analgesics, Hypnotics, Sedatives into Peripheral Vein, Percutaneous Approach (ICD-10-PCS; 2017-06-14)
DX: K57.32 Diverticulitis of large intestine without perforation or abscess without bleeding (principal); R10.30 Lower abdominal pain, unspecified; D64.9 Anemia, unspecified; J45.909 Unspecified asthma, uncomplicated; I34.1 Nonrheumatic mitral (valve) prolapse; F17.210 Nicotine dependence, cigarettes, uncomplicated; R73.03 Prediabetes; Z90.710 Acquired absence of both cervix and uterus; Z88.6 Allergy status to analgesic agent; Z88.2 Allergy status to sulfonamides
CPT/HCPCS: 36415; 74177-TC; 80053; 81003; 85025; 99283-25; Q9967

== ENCOUNTER 2021-12-19 04:31 | Emergency (ER) | payer BC ==
[2021-12-19 05:03] VITALS: BP 118/64; PULSE 67; TEMP 98.7; BMI 29.8
== END 2021-12-19 06:35 | disposition home or self-care (01) ==
LOC: JER 04:31
DX: R05.1 Acute cough (principal); J02.9 Acute pharyngitis, unspecified; J06.9 Acute upper respiratory infection, unspecified
CPT/HCPCS: 82962; 87804; 99283-25; C9803-CS; U0003; U0005

== ENCOUNTER 2022-01-08 11:16 | Emergency (ER) | payer BC, OTHER ==
[2022-01-08 11:26] VITALS: TEMP 98.7; BMI 33.3
[2022-01-08] MEDS ORDERED: BEBTELOVIMAB (EUA) 175 MG/2 ML VIAL IVPUSH ONE (12:04)
[2022-01-08 14:40] VITALS: BP 132/75; PULSE 78
== END 2022-01-08 14:40 | disposition home or self-care (01) ==
LOC: JER 11:16 → JCOVINFU 11:16
PROC: 3E033GC Introduction of Other Therapeutic Substance into Peripheral Vein, Percutaneous Approach (ICD-10-PCS; principal; 2022-01-08)
DX: U07.1 COVID-19 (principal)
CPT/HCPCS: 99284-25; M0222; Q0222

== ENCOUNTER 2022-04-17 11:02 | Emergency (ER) | payer BC, OTHER ==
[2022-04-17 11:20] VITALS: BP 127/63; PULSE 78; RESP 18; TEMP 98.1; BMI 32.5
== END 2022-04-17 15:22 | disposition left against medical advice (07) ==
LOC: JERFT 11:02 → JER 11:02 → JERFT 15:22
DX: N64.4 Mastodynia (principal)
CPT/HCPCS: 99283-25; 99284-25

== ENCOUNTER 2022-04-18 18:52 | Emergency (ER) | payer BC, OTHER ==
[2022-04-18 19:00] VITALS: BP 116/76; PULSE 65; RESP 18; TEMP 98; BMI 32.5
[2022-04-18] MEDS ORDERED: IBUPROFEN 600 MG TABLET (FP) PO ONE (21:00)
[2022-04-18] MEDS ORDERED: KETOROLAC TROMETHAMINE 30 MG/1 ML VIAL IM ONE (21:21)
[2022-04-18] MEDS ORDERED: METHOCARBAMOL 500 MG TABLET PO ONE (21:21)
[2022-04-18] MEDS ORDERED: METHOCARBAMOL 500 MG TABLET ONE (22:08)
[2022-04-18] MEDS ORDERED: KETOROLAC TROMETHAMINE 30 MG/1 ML VIAL ONE (22:09)
== END 2022-04-18 23:03 | disposition home or self-care (01) ==
LOC: JER 18:52
PROC: 3E0233Z Introduction of Anti-inflammatory into Muscle, Percutaneous Approach (ICD-10-PCS; principal; 2022-04-18)
DX: M54.2 Cervicalgia (principal); R51.9 Headache, unspecified
CPT/HCPCS: 70450-TC; 72125-TC; 99284-25

== ENCOUNTER 2022-08-26 14:25 | Emergency (ER) | payer OTHER, BC ==
[2022-08-26 14:31] VITALS: BMI 31.1
[2022-08-26] MEDS ORDERED: KETOROLAC TROMETHAMINE 30 MG/1 ML VIAL IM ONE (16:32)
[2022-08-26] MEDS ORDERED: KETOROLAC TROMETHAMINE 15 MG/ML VIAL IVPUSH ONE (16:48)
[2022-08-26] MEDS ORDERED: KETOROLAC TROMETHAMINE 15 MG/ML VIAL ONE (16:58)
[2022-08-26] MEDS ORDERED: ACETAMINOPHEN 1000 MG/100 ML BAG IVPB ONE (17:24)
[2022-08-26 17:32] LABS: BASO % 0.8 % (0-2.0); HEMATOCRIT 41.7 % (32.4-45.2); HEMOGLOBIN 13.1 GM/dL (10.7-15.3); LYMPH % 19.4 % (8-40); MCH 23.8 pg (25.7-33.7); MCHC 31.3 g/dl (32.0-36.0); MEAN CELL VOLUME 76.1 fl (80-96); MEAN PLT VOLUME 9.3 fl (7.5-11.1); MONO % 6.1 % (3.8-10.2); NEUT % 72.7 % (42.8-82.8); PLATELET COUNT 349 10^3/uL (134-434); RBC 5.48 M/mm3 (3.60-5.2); RDW 15.1 % (11.6-15.6); WHITE BLOOD COUNT 10.6 K/mm3 (4.0-10.0)
[2022-08-26 17:38] LABS: INR 1.09 (0.83-1.09); PROTHROMBIN TIME (PATIENT) 12.6 SEC (9.7-13.0)
[2022-08-26] MEDS ORDERED: ACETAMINOPHEN INJECTION 100 ML IVPB ONE (17:38)
[2022-08-26 17:40] LABS: ACTIVATED PTT 34.1 SECONDS (25.2-36.5)
[2022-08-26 17:52] LABS: CALCIUM 9.7 mg/dL (8.5-10.1)
[2022-08-26 17:53] LABS: ALBUMIN 3.9 g/dl (3.4-5.0); BLOOD UREA NITROGEN 20.3 mg/dL (7-18)
[2022-08-26 17:56] LABS: CREATININE 1.1 mg/dL (0.55-1.3)
[2022-08-26 17:58] LABS: BILIRUBIN,TOTAL 0.5 mg/dL (0.2-1)
[2022-08-26 19:22] VITALS: BP 110/68; PULSE 72; RESP 19; TEMP 98.9
== END 2022-08-26 19:22 | disposition home or self-care (01) ==
LOC: JERFT 14:25
PROC: 3E033GC Introduction of Other Therapeutic Substance into Peripheral Vein, Percutaneous Approach (ICD-10-PCS; principal; 2022-08-26)
DX: R07.89 Other chest pain (principal); V49.40XA Driver injured in collision with unspecified motor vehicles in traffic accident, initial encounter
CPT/HCPCS: 36415; 71046-TC-FY; 80053; 84484; 85025; 85610; 85730; 86850; 86900; 86901; 93005; 93010; 99285-25

== ENCOUNTER 2024-04-01 07:41 | Emergency (ER) | payer BC ==
[2024-04-01 07:51] VITALS: BP 117/77; PULSE 78; RESP 18; TEMP 98.2; BMI 23.9
[2024-04-01] MEDS ORDERED: ACETAMINOPHEN 325 MG TABLET (FP) ONE (08:57)
[2024-04-01] MEDS ORDERED: ALBUTEROL SO4 2.5/IPRATROPIUM 0.5 INH SOL 3 ML VIAL.NEB. NEB ONE (08:57)
[2024-04-01] MEDS: ALBUTEROL SO4 2.5/IPRATROPIUM 0.5 INH SOL 3 ML VIAL.NEB. NEB ONE (09:15)
[2024-04-01] MEDS: ACETAMINOPHEN 325 MG TABLET (FP) PO ONE (09:15)
== END 2024-04-01 11:27 | disposition home or self-care (01) ==
LOC: JER 07:41
PROC: 3E0F7GC Introduction of Other Therapeutic Substance into Respiratory Tract, Via Natural or Artificial Opening (ICD-10-PCS; principal; 2024-04-01)
DX: U07.1 COVID-19 (principal); R53.83 Other fatigue; R50.9 Fever, unspecified; R05.9 Cough, unspecified
CPT/HCPCS: 0241U-QW; 71046-TC-FY; 99284-25